=== PATIENT | male | born 1995 | race Caucasian/White ===

== ENCOUNTER 2017-06-18 14:49 | Emergency (ER) | payer OTHER ==
[2017-06-18] MEDS ORDERED: Diphtheria,Pertussis(Acell),Tetanus Vaccine 0.5 ML Syringe IM ONE (15:29)
--- NOTE | 2017-06-18 15:29 | EDM.PDOC ---
ED HPI GENERAL MEDICAL PROBLEM - General Chief Complaint: Upper Extremity Injury/Pain Stated Complaint: PT HURT RT ARM Time Seen by Provider: 06/18/17 15:01 Source of Information: Reports: Patient History Limitations: Reports: No Limitations - History of Present Illness INITIAL COMMENTS - FREE TEXT/NARRATIVE: HISTORY AND PHYSICAL: History of present illness: [22-year-old male now presents emergency department after laceration deep scratch in the right elbow area yesterday. Patient was trying to climb throat window when a sharp piece of metal scratched his arm causing some bleeding. This happened yesterday afternoon. Part of the wound is an avulsion which has not been bleeding but about 1.5 cm area is a laceration which has continued to ooze some clear bloody fluid. Patient was concerned he might need stitches so he came to the emergency department now a full day after the injury. No other complaints. Patient denies possibility of foreign body in the wound and he has normal use and range of motion of his elbow wrist and shoulder with no history of blunt trauma Review of systems: As per history of present illness and below otherwise all systems reviewed and negative. Past medical history: As per history of present illness and as reviewed below otherwise noncontributory. Surgical history: As per history of present illness and as reviewed below otherwise noncontributory. Social history: No reported history of drug or alcohol abuse. Family history: As per history of present illness and as reviewed below otherwise noncontributory. Physical exam: Well-appearing male no acute distress. Superficial wounds and right elbow area with 5 cm x 0.5 cm skin avulsion superficial and subcutaneous which is hemostatic. At the distal end of this avulsion patient has a 1.5 cm laceration through the skin and subcutaneous tissues. This laceration is oozing some blood tinged clear serosanguineous exudate. Neither wound has gross contamination or palpable foreign body. No erythema warmth fluctuance or tenderness. Oral painless range of motion of the elbow wrist and shoulder with no bony tenderness and no soft tissue swelling. HEENT: Normocephalic, atraumatic, pupils normal and symmetrical, supple neck, no meningismus, normal color Lungs: Normal and symmetrical chest wall excursion bilateral with no tachypnea or increased work of breathing, grossly normal chest exam Heart: No tachycardia in triage Abdomen: Normal-appearing, nondistended, no visible mass or asymmetry Pelvis: Normal-appearing Genitourinary: Deferred Rectal exam: Deferred Extremities: Atraumatic, normal use and range of motion, no visible evidence of gross neurovascular compromise Neuro: Awake, alert, oriented. Normal and appropriate mental status. Cranial nerves grossly unremarkable. Motor function normal. Nonfocal neurologic exam. Diagnostics: [] Therapeutics: [Tetanus given] Impression: [] Plan: [Signs and symptoms consistent with uncomplicated skin avulsion and small laceration. As wound one day old and is well approximated, and there is no cosmetic issue with the laceration, no primary repair is indicated at this time. Tetanus was updated. Patient is very clear this no possibility of foreign body in the wound so no x-rays indicated. No evidence of bony injury or soft tissue abnormality other than the wound itself. No further workup or treatment indicated patient agrees with outpatient follow-up and strict return precautions given Definitive disposition and diagnosis as appropriate pending reevaluation and review of above. right elbow Pain Score (Numeric/FACES): 4 - Related Data Allergies Allergy/AdvReac Type Severity Reaction Status Date / Time No Known Allergies Allergy Verified 06/18/17 15:16 Home Meds: Home Meds . [No Known Home Meds] 06/18/17 [History] Past Medical History - Past Health History Medical/Surgical History: Denies Medical/Surgical History Social & Family History - Family History Family Medical History: Noncontributory - Tobacco Use Smoking Status *Q: Never Smoker - Recreational Drug Use Recreational Drug Use: No Review of Systems - Review of Systems Review Of Systems: See Below (History of present illness) ED EXAM, GENERAL - Physical Exam Exam: See Below (History of present illness) Course - Vital Signs Last Recorded V/S: Last Vital Signs Temp 36.8 C 06/18/17 15:16 Pulse 89 06/18/17 15:16 Resp 16 06/18/17 15:16 BP 127/79 06/18/17 15:16 Pulse Ox 97 06/18/17 15:16 - Orders/Labs/Meds Orders: Active Orders 24 hr Category Date Time Status Vaccines to be Administered [RC] PER UNIT ROUTINE Care 06/18/17 15:29 Ordered Meds: Medications Discontinued Medications Generic Name Dose Route Start Last Admin Trade Name Freq PRN Reason Stop Dose Admin Diphtheria/Tetanus/Acell Pertussis 0.5 ml 06/18/17 15:29 Adacel IM 06/18/17 15:30 .ONCE ONE Departure - Departure Time of Disposition: 15:26 Disposition: Home, Self-Care 01 Condition: Good Clinical Impression: Laceration of right upper extremity, Avulsion of skin of elbow, Tetanus- diphtheria vaccination administered at current visit - Discharge Information Referrals: PCP,None [Primary Care Provider] - Forms: ED Department Discharge Additional Instructions: You have a laceration near your right elbow. This will continue to heal on its own and does not require any closure today. You also have a skin avulsion, which means some of your skin is missing from being scratched off. This will heal on its on. Keep her wounds clean and patent dry. You can apply topical antibiotic ointment while it's healing and keep a clean 4 x [address] until your wound is healed. Take ibuprofen and Tylenol as needed for pain and follow-up with your Dr. for a wound check in several days. Return immediately for signs of infection which would be signs of increasing redness pain and swelling and drainage of pus, specially in the setting of fevers vomiting or feeling progressively more sick. - My Orders Last 24 Hours: My Active Orders 06/18/17 15:29 Vaccines to be Administered [RC] PER UNIT ROUTINE - Assessment/Plan Last 24 Hours: My Active Orders 06/18/17 15:29 Vaccines to be Administered [RC] PER UNIT ROUTINE
[2017-06-18] MEDS ORDERED: Bacitracin Oint 1 GM U/D Packet TOP ONE (15:36)
[2017-06-18] MEDS ORDERED: Diphtheria,Pertussis(Acell),Tetanus Vaccine 0.5 ML Syringe ONE (15:42)
[2017-06-18 16:05] VITALS: BP 177/70
== END 2017-06-18 16:00 | disposition home or self-care (01) ==
LOC: MW.ED 14:49
DX: S51.011A Laceration without foreign body of right elbow, initial encounter (principal); Z23 Encounter for immunization; W26.8XXA Contact with other sharp object(s), not elsewhere classified, initial encounter
CPT/HCPCS: 90471; 90715; 99282; 99282-25